=== PATIENT | male | born 1955 | race Caucasian/White ===

== ENCOUNTER 2022-02-22 07:41 | Outpatient (CLI) | payer OTHER ==
[~2022-02-22 07:41] MED LIST: CEFTIN250 MG PO; LEVOXYL25 MCG; LEVOXYL25 MCG PO; LOSARTAN POTASS50 MG; NAPROXEN SODIU550 MG PO
== END 2022-02-22 07:48 | disposition home or self-care (01) ==
LOC: SONOGRAMA 07:41
PROVIDERS: ATTEND Internal Medicine
DX: E03.9 Hypothyroidism, unspecified (principal)